=== PATIENT | female | born 1990 | race Caucasian/White ===

== ENCOUNTER 2016-08-29 16:23 | Emergency (ER) | payer OTHER ==
[~2016-08-29] VITALS: Ht 172.7 cm; Wt 71.8 kg
[~2016-08-29 16:23] MED LIST: NECON 1/35 35 M1 TAB PO; VENTOLIN0.09 MG IH
[2016-08-29 16:25] VITALS: BP 147/77
[2016-08-29 19:05] VITALS: PULSE 88; TEMP 97.2
== END 2016-08-29 19:05 | disposition home or self-care (01) ==
LOC: COL.ER 16:23
DX: R07.9 Chest pain, unspecified (principal); K21.9 Gastro-esophageal reflux disease without esophagitis

== ENCOUNTER 2016-09-09 07:42 | Emergency (ER) | payer OTHER ==
[~2016-09-09] VITALS: Ht 172.7 cm; Wt 70.5 kg
[2016-09-09] MEDS ORDERED: PRILOSEC 20MG20 MG PO (07:51)
[2016-09-09 08:29] LABS: BASO % 0.8 % (0.0-2.0); EOS # 0.2 (0.0-0.7); GRAN # 2.5 (1.4-6.5); GRAN % 47.4 % (42.2-75.2); HEMATOCRIT 40.7 % (37.0-47.0); HEMOGLOBIN 13.7 g/dl (12.5-16.0); LYMPH # 1.8 (1.2-3.4); LYMPH % 34.4 % (20.0-51.0); MEAN CELL VOLUME 89 fl (80.0-100.0); MEAN CORPUSCULAR HEMOGLOBIN 30 pg (27.0-31.0); MEAN CORPUSCULAR HGB CONC 34 g/dl (33.0-37.0); MEAN PLATELET VOLUME 11.8 fl (7.4-10.4); MONO # 0.7 (0.1-0.6); MONO % 13.2 % (1.7-9.3); PLATELET COUNT 240 K/mm3 (130-400); REDCELL DISTRIBUTION WIDTH-CV 12.1 % (11.5-14.5); WHITE BLOOD COUNT 5.2 K/mm3 (4.8-10.8)
[2016-09-09 08:40] LABS: ADJUSTED CALCIUM 9.6 mg/dL (8.4-10.2); ALANINE AMINOTRANSFERASE 60 U/L (9-52); ALBUMIN 4.5 gm/dL (3.5-5.0); ALKALINE PHOSPHATASE 54 U/L (50-136); ANION GAP 11 mmol/L (7-16); BILIRUBIN,TOTAL 0.9 mg/dL (0.0-1.0); BLOOD UREA NITROGEN 10 mg/dL (7-17); CARBON DIOXIDE 29 mmol/L (22-30); CHLORIDE 101 mmol/L (98-107); CREATININE, serum 0.79 mg/dL (0.52-1.25); GLUCOSE 91 mg/dL (74-106); POTASSIUM 3.5 mmol/L (3.4-5.0); SODIUM 141 mmol/L (137-145); TOTAL PROTEIN 8.1 gm/dL (6.4-8.2)
[2016-09-09 08:42] LABS: C-REACTIVE PROTEIN < 0.5 mg/dL (0.0-0.9)
[2016-09-09 08:54] LABS: ERYTHROCYTE SEDIMENTATION RATE 7 mm/hr (0-20)
[2016-09-09 09:50] VITALS: BP 113/66; PULSE 66; TEMP 97.9
== END 2016-09-09 09:56 | disposition home or self-care (01) ==
LOC: COL.ER 07:42
PROVIDERS: Physician Assistant
DX: R51 Headache (principal); M79.672 Pain in left foot; M79.605 Pain in left leg; M79.602 Pain in left arm
CPT/HCPCS: J1200; J1885; J2765; J7030